=== PATIENT | female | born 1980 | race African-American/Black ===

== ENCOUNTER 2018-09-10 21:22 | Emergency (ER) | payer OTHER ==
[2018-09-10 21:26] VITALS: BP 150/88; PULSE 67; TEMP 97.6; BMI 25.0
--- NOTE | 2018-09-10 21:26 | PDOC ---
Rapid Medical Evaluation Time Seen by Provider: 09/10/18 21:24 Medical Evaluation: Allergies Allergy/AdvReac Type Severity Reaction Status Date / Time cephalexin AdvReac Mild Rash Verified 10/30/15 10:35 09/10/18 21:24 I have performed a brief in-person evaluation of this patient. The patient presents with a chief complaint of: sinus pressure x3 weeks Pertinent physical exam findings: Lungs CTAB. No sinus tenderness I have ordered the following: nothing The patient will proceed to the ED for further evaluation. Discharge Disposition - Diagnosis Sinus pressure - Referrals - Patient Instructions - Post Discharge Activity
--- NOTE | 2018-09-10 22:55 | PDOC ---
History of Present Illness - General Chief Complaint: Ear Problem Stated Complaint: HEAR PRESURE Time Seen by Provider: 09/10/18 21:24 - History of Present Illness Initial Comments: 09/10/18 22:52 37-year-old female with a past medical history significant for hypertension presents for evaluation of sinus pressure without fever 3 weeks. Seen by an ENT and given steroids she has no relief. Past History - Past Medical History Allergies/Adverse Reactions: Allergies Allergy/AdvReac Type Severity Reaction Status Date / Time amoxicillin Allergy Verified 09/10/18 21:27 Penicillins Allergy Verified 09/10/18 21:27 cephalexin AdvReac Mild Rash Verified 09/10/18 21:27 Home Medications: Ambulatory Orders Vitamins ([facility]) - 1 tab PO DAILY 09/24/15 Cetirizine HCl/Pseudoephedrine [Zyrtec-D Tablet] 1 each PO DAILY #30 tab.er.12h 09/10/18 Doxycycline Hyclate 100 mg PO BID 7 Days #14 tablet 09/10/18 Doxycycline Hyclate 100 mg PO BID 7 Days #14 tablet 09/10/18 COPD: No HTN: Yes - Suicide/Smoking/Psychosocial Hx Smoking History: Never smoked Have you smoked in the past 12 months: No Hx Alcohol Use: No Drug/Substance Use Hx: No Substance Use Type: None Review of Systems - Review of Systems HEENTM: Yes: See HPI, Ear Pain, Nose Congestion *Physical Exam - Vital Signs Last Vital Signs Temp Pulse Resp BP Pulse Ox 97.6 F 67 18 150/88 100 09/10/18 21:24 09/10/18 21:24 09/10/18 21:24 09/10/18 21:24 09/10/18 21:24 - Physical Exam Comments: 09/10/18 22:53 HEAD: NC/AT 10 to frontal and maxillary sinuses EYES: Conjuntiva clear Ears: Canals and TM's normal NOSE: No d/c injected turbinates THROAT: Moist mucous membrances, oral pharanx clear, uvula midline NECK: Supple without adenopathy CARDIAC: S1 S2 LUNGS: CTA Full and Equal breath sounds ABDOMEN: Soft NT ND MS: Full ROM in all joints without edema NEUROLOGIC: No gross sensory or motor deficits, NVID SKIN: Normal color and temperature no lesions or rashes Medical Decision Making - Medical Decision Making 09/10/18 22:53 Pen ALLERGIC and cephalosporin ALLERGIC I will treat her sinusitis with doxycycline and zyrtec D and have her follow back up with her ENT 09/10/18 22:54 She assures me there is no chance of start doxycycline as directed *DC/Admit/Observation/Transfer Diagnosis at time of Disposition: Sinus pressure, Sinusitis - Discharge Dispostion Disposition: HOME Condition at time of disposition: Stable Decision to Admit order: No - Prescriptions Prescriptions: Cetirizine HCl/Pseudoephedrine [Zyrtec-D Tablet] 1 each PO DAILY #30 tab.er.12h Doxycycline Hyclate 100 mg PO BID 7 Days #14 tablet Doxycycline Hyclate 100 mg PO BID 7 Days #14 tablet - Referrals Referrals: Kofi Nava MD [Primary Care Provider] - - Patient Instructions Printed Discharge Instructions: Sinusitis, DI for Sinusitis Additional Instructions: Return to the emergency room for worsening symptoms. Please follow-up with ENT in one to 2 days for further evaluation and treatment options please take the antibiotics as directed and finish the entire course please use the Zyrtec as well as her home nasal spray as directed. - Post Discharge Activity
== END 2018-09-10 23:02 | disposition home or self-care (01) ==
LOC: JERFT 21:22
DX: J01.90 Acute sinusitis, unspecified (principal)
CPT/HCPCS: 99281-25